=== PATIENT | male | born 1945 | race Caucasian/White ===

== ENCOUNTER 2017-06-10 16:50 | Observation (INO) | payer MEDICARE ==
[~2017-06-10] VITALS: Ht 177.8 cm; Wt 100.2 kg
[2017-06-10 16:54] VITALS: BP 166/91
[2017-06-10] MEDS ORDERED: CARVEDILOL12.5 MG PO (17:02)
[2017-06-10] MEDS ORDERED: VESICARE 5 MG TA5 MG PO (17:02)
[2017-06-10] MEDS ORDERED: ATORVASTATIN CA40 MG PO (17:02)
[2017-06-10] MEDS ORDERED: ASPIR 8181 MG PO (17:02)
[2017-06-10] MEDS ORDERED: AMARYL4 MG PO (17:02)
[2017-06-10] MEDS ORDERED: BENAZEPRIL HCL40 MG PO (17:02)
[2017-06-10] MEDS ORDERED: UNICOMPLEX M TA1 TA1 PO (17:03)
[2017-06-10] MEDS ORDERED: LITTLE REMEDIE118 M1 PO (17:03)
[2017-06-10] MEDS ORDERED: GLYXAMBI 25 MG1 EACH PO (17:03)
[2017-06-10] MEDS ORDERED: GLUCOPHAGE XR500 MG PO (17:03)
[2017-06-10] MEDS ORDERED: COQ-10100 MG PO (17:03)
[2017-06-10] MEDS ORDERED: PROBIOTIC1 EAC1 PO (17:03)
[2017-06-10] MEDS ORDERED: PROTONIX40 M1 PO (17:03)
[2017-06-10] MEDS ORDERED: NITROGLYCERIN0.4 MG SUBLING (17:04)
[2017-06-10 17:23] LABS: ABSOLUTE EOSINOPHILS 0.2 thou/uL (0.0-0.7); ABSOLUTE LYMPHOCYTES 1.6 thou/uL (0.8-5.3); ABSOLUTE MONOCYTES 0.8 thou/uL (0.0-1.2); ABSOLUTE NEUTROPHILS 4.9 thou/uL (1.6-8.1); BASOPHILS 0.6 %; EOSINOPHILS 2.3 %; HEMATOCRIT 46.7 % (42.0-52.0); HEMOGLOBIN 15.4 gm/dL (14.0-18.0); LYMPHOCYTES 20.9 %; MCH 31.6 pg (26.0-34.0); MCHC 32.9 g/dL (28.0-37.0); MCV 96.1 fL (80.0-100.0); MONOCYTES 10.3 %; MPV 11.1 fl. (7.2-11.1); NUCLEATED RBCS 0 /100WBC; PLATELET COUNT* 132 thou/uL (150-400); POLYS 65.9 %; RBC 4.86 mil/uL (4.50-6.00); RDW-CV 14.2 % (10.5-14.5); WBC 7.5 thou/uL (4.0-11.0)
[2017-06-10 17:29] LABS: ANION GAP 11 mmol/L (7-16); BUN 18 mg/dL (7-18); CALCIUM 8.2 mg/dL (8.5-10.1); CHLORIDE 111 mmol/L (98-107); CO2 24 mmol/L (21-32); CREATININE 1.4 mg/dL (0.6-1.3); GLUCOSE 80 mg/dL (70-99); POTASSIUM 4.1 mmol/L (3.5-5.1); SODIUM 146 mmol/L (136-145)
[2017-06-10 17:30] LABS: APTT 25.9 Seconds (25.0-31.3)
[2017-06-10 17:41] LABS: ALBUMIN 3.6 g/dL (3.4-5.0); ALKALINE PHOSPHATASE 70 U/L (46-116); LIPASE 210 U/L (73-393); NT-PRO BRAIN NAT PEPTIDE 807 pg/mL (<300); SGOT 19 U/L (15-37); SGPT 29 U/L (30-65); TOTAL BILIRUBIN 0.3 mg/dL (<0.1-1.0); TOTAL PROTEIN 6.4 g/dL (6.4-8.2); TROPONIN-I LEVEL <0.06 ng/mL (<0.06)
[2017-06-10 18:08] VITALS: BP 156/76
[2017-06-10 18:31] VITALS: BP 152/69
--- NOTE | 2017-06-10 19:22 | NUR ---
RECEIVED PT FROM ER. ADMISSION ASSESSMENT COMPLETE. PT C/O OF CHEST PRESSURE 06/01. CARDIOLOGY NOTIFIED, RECEIVED ORDER FOR NPO AFTER MIDNIGHT. VSS. AFEBRILE. MEDICATIONS UPDATED. PREFERRED PHARMACY ENTERED. PT EDUCATED RADIOLOGY SERVICES MANAGER LIGHT SYSTEM. PT ATE DINNER. PT ADDED TO BLOOD GLUCOSE MONITORING. PT AND SPOUSE EDUCATED ON PLAN. 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 PT REPORTS HE HAS DISCUSSED WHAT HE WANTS ADVANCE DIRECTIVE TO BE. PT TO HAVE CASE MANAGEMENT ADDRESS. TOOK HOME HOME NITRO. PT DENIES TAKING NITRO AT HOME.
[2017-06-10 20:30] VITALS: BP 138/67
[2017-06-11 01:05] VITALS: BP 126/76
[2017-06-11 03:18] LABS: HEMATOCRIT 43.9 % (42.0-52.0); HEMOGLOBIN 14.5 gm/dL (14.0-18.0); MCH 31.6 pg (26.0-34.0); MCV 95.7 fL (80.0-100.0); RBC 4.59 mil/uL (4.50-6.00); WBC 6.9 thou/uL (4.0-11.0)
[2017-06-11 03:33] LABS: ALBUMIN 3.3 g/dL (3.4-5.0); CALCIUM 8.1 mg/dL (8.5-10.1); CREATININE 1.5 mg/dL (0.6-1.3); MAGNESIUM 1.6 mg/dL (1.8-2.4); POTASSIUM 3.8 mmol/L (3.5-5.1); TOTAL BILIRUBIN 0.4 mg/dL (<0.1-1.0); TOTAL PROTEIN 5.8 g/dL (6.4-8.2)
[2017-06-11 04:47] VITALS: BP 145/79
--- NOTE | 2017-06-11 04:55 | NUR ---
PT A/OX4, RA, SR WITH PVC'S ON 0000 AND 0400 WITH 1999 SHOWING BIGEMONY, NO C/O CP OVER NIGHT, PT STATED HE HAS THE SLIGHT PRESSURE THAT HE'S HAD ALL WEEK AND EDUCATED PT TO REPORT ANY CHANGES, VSS, HOURLY ROUNDING IN PLACE, UP AD SILVERIO, FALL PRECAUTIONS IN PLACE, CALL LIGHT AT PTS SIDE, NPO FOR CARDIO CONSULT, WILL CONT TO MONITOR.
--- NOTE | 2017-06-11 06:33 | NUR ---
MAG 1.6 U-CALL SENT TO DR GARCIA, RETURN CALL WITH NEW ORDER FOR E-LYTE PROTOCOL REC.
[2017-06-11 07:09] LABS: CALCIUM 8.3 mg/dL (8.5-10.1); CREATININE 1.4 mg/dL (0.6-1.3); MAGNESIUM 1.6 mg/dL (1.8-2.4); POTASSIUM 3.9 mmol/L (3.5-5.1)
[2017-06-11 08:20] VITALS: BP 155/99
[2017-06-11 10:09] LABS: CHOLESTEROL 109 mg/dL (<200); HDL CHOLESTEROL 26 mg/dL (>40); LDL CHOLESTEROL 59 mg/dL (<100); SERUM ASSESSMENT Clear; TC:HDL 4.2 Ratio (Not establshd); TRIGLYCERIDE 121 mg/dL (<150); VLDL 24 mg/dL (<40)
--- NOTE | 2017-06-11 10:56 | EKG ---
[place] [address] ELECTROCARDIOGRAM REPORT Name: WARNER GOODE Room: [address] ADM IN .R.#: [id number] Admission: 06/10/17 Attend Phys: Ran Barajas, Discharge: Date of : 41 Report #: [id number] THIS REPORT FOR: //name// [facility] ED Test Date: 2017-06-10 Test Time: 16:55:14 Pat Name: WARNER GOODE Department: Room: [facility] Gender: M Supervisor Customer Complaint Service: Jonh MCKEE : 1945 Requested By: Morena Barney Order Number: [id number] MD: Wing Hernandez Measurements Intervals [place] Rate: 109 P: 68 IA: 170 QRS: 43 QRSD: 106 T: -43 QT: 380 QTc: 512 Interpretive Statements Sinus rhythm Ventricular bigeminy Borderline T abnormalities, inferior leads No previous ECG available for comparison Electronically Signed On 06-11-2017 10:56:05 DESKIDDING MACHINE OPERATOR by Wing Hernandez [email or web address] <ELECTRONICALLY SIGNED> By: Wing Hernandez MD, [facility] 06/11/17 1056 [id number] Wing Hernandez MD, [facility] /EPI
--- NOTE | 2017-06-11 12:03 | NUR ---
ATTEMPTED TO MEET WITH PT, OFF UNIT FOR TEST
[2017-06-11 12:33] VITALS: BP 156/65
--- NOTE | 2017-06-11 13:16 | NUR ---
MET WITH PT TO DISCUSS HOME SITUATION/DC PLANNING. PT LIVES WITH . HE IS INDEPENDENT AND ACTIVE. USES NO EQUIPMENT OR HOME CARE. PT PLANS TO RETURN HOME AT DC.
--- NOTE | 2017-06-11 14:43 | NUR ---
PT A/O X'S 4. PT NPO FOR STRESS TEST. DISCUSSED WITH PT PLAN OF CARE. PT C/O OF CONTINUED CHEST PRESSURE 2/10 ON CHEST. PT REPORTS IT IS SAME WHEN CAME IN HOSPITAL. PT UP AD SILVERIO. WILL CONTINUE PLAN OF CARE.
--- NOTE | 2017-06-11 16:03 | CARDNUC ---
[place] [address] CARDIAC NUCLEAR IMAGING REPORT Name: WARNER GOODE Room: [address] [facility]#: [id number] Admission: 06/10/17 Attend Phys: Ran Celestin Discharge: Date of : 41 Date of Service: 06/11/17 1603 Report #: [id number] THIS REPORT FOR: //name// APPROVED REPORT Exam: Nuclear Stress Test Indication: Chest pain Patient Location: In-Patient Room #: 226 Stress Tech: Hui Banerjee Stress Nurse: Monalisa Kay RN NM Tech:NUZHAT Deras Ht: 5 ft 10 in Wt: 221 lbs BSA: 2.18 m2 BMI: 31.70 Medical History Medical History: CAD s/p PA, HTN, Hyperlipidemia, Diabetes Medications: atorvastatin, carvedilol, lisinopril, asa Allergies: nexium Cardiac Risk Factors: Age, DM, HTN, Hyperlipidemia Previous Cardiac Procedures: Myocardial infarction Exercise History: Sedentary Stress Test Details Stress Test: Pharmacologic stress testing performed using 0.4 mg of regadenoson per 5 mL given IV over 10 seconds. Reason for pharmacologic stress test: physical limitation. HR Resting HR: 80 bpm Max Heart Rate (APMHR): 147 bpm Max HR Achieved: 95 bpm Target HR (85% APMHR): 124 bpm % of APMHR: 64 Recovery HR: 90 bpm BP Resting BP: 130/99 mmHg Max BP: 113/70 mmHg ECG Resting ECG: sinus rhythm with PVCs Stress ECG: sinus rhythm with PVCs ST Change: None Arrhythmia: no significant [place] [address] CARDIAC NUCLEAR IMAGING REPORT Name: WARNER GOODE Room: [address]#: [id number] Admission: 06/10/17 Attend Phys: Ran Celestin Discharge: Date of : 41 Date of Service: 06/11/17 1603 Report #: [id number] noted Recovery ECG: sinus rhythm with PVCs Recovery ST Change: None Recovery Arrhythmia: no significant stress-induced arrhythmia noted Clinical Reason for Termination: Completed protocol Stress Symptoms: None Exercise duration: - min sec Exercise capacity: 1.0 METs The patient had no significant symptoms with Lexiscan infusion. Stress ECG Conclusion Baseline 12-lead elect cardiogram showed sinus rhythm with unifocal premature ventricular contractions. There was subtle 0.[address] segment depression noted. EKGs obtained during and post Lexiscan infusion showed sinus rhythm with continued frequent unifocal premature ventricular contractions. There were no significant ST or T wave changes noted when compared to baseline. There were no significant stress-induced arrhythmias. NM EXAM: Myocardial Perfusion REST/STRESS Imaging Protocol: Rest Tc-99m/Stress Tc-99m 1 day Resting Data Rest SPECT myocardial perfusion imaging was performed in supine position 30 minutes following the intravenous injection of 12.0 mCi of Tc-99m Sestamibi. Time of rest injection: 1000 Time of rest imagin The images were gated to evaluate regional wall motion and calculate left ventricular ejection fraction. Administration Route: IV Pharmacologic Stress Pharmacologic stress test was performed by injecting Regadenoson 0.4 mg IV push followed by the intravenous injection of 30.0 mCi of Tc-99m Sestamibi. Time of stress injection: 1125 Time of stress imagin Administration Route: IV Gated Stress SPECT was performed 120 minutes after stress injection. The images were gated to evaluate regional [place] [address] CARDIAC NUCLEAR IMAGING REPORT Name: WARNER GOODE Room: [address]#: [id number] Admission: 06/10/17 Attend Phys: Ran Celestin Discharge: Date of : 41 Date of Service: 06/11/17 1603 Report #: [id number] left ventricular ejection fraction. Prone imaging was performed. Study Quality Study: Good Artifact: No artifact Study Data At rest, the left ventricular ejection fraction was 35%.. Post stress, the left ventricular ejection was 34%.. TID = 1.01. Perfusion There is a moderate size severe intensity fixed defect involving the basal to midportion of the inferior and inferoseptal wall. No other defects are identified. Wall Motion Gated images show severe hypokinesis to akinesis of the inferolateral inferoseptal wall. No other significant wall motion abnormalities noted. Nuclear Conclusion ECG Findings: negative for ischemia Clinical Findings: negative for ischemia Nuclear Findings: negative for ischemia Exercise Capacity: not assessed Left Ventricular Function: abnormal Risk Study: moderate Myocardial perfusion images show a fixed defect of the inferior and inferoseptal wall consistent with prior infarct. No reversible defects are identified to suggest ischemia. Left ventricular systolic function appears moderately decreased consistent with ischemic cardiomyopathy. His is a moderate risk study based on left ventricular systolic dysfunction. <Conclusion> Baseline 12-lead elect cardiogram showed sinus rhythm with unifocal premature ventricular contractions. There was subtle 0.[address] segment depression noted. EKGs obtained during and post Lexiscan infusion showed sinus rhythm with continued frequent unifocal premature ventricular contractions. There were no significant ST [place] [address] CARDIAC NUCLEAR IMAGING REPORT Name: WARNER GOODE Room: [address] [place] [facility]#: [id number] Admission: 06/10/17 Attend Phys: Ran Celestin Discharge: Date of : 41 Date of Service: 06/11/17 1603 Report #: [id number] wave changes noted when compared to baseline. There were no significant stress-induced arrhythmias. <ELECTRONICALLY SIGNED> By: Erick Carias MD, FACC 06/11/17 1603 1603 1603 Erick Carias MD, FACC /INF
[2017-06-11 16:15] VITALS: BP 156/65
[2017-06-11 16:17] VITALS: BP 142/79
--- NOTE | 2017-06-11 16:39 | 2DMMODE ---
[place] [address] 2 D/M-MODE ECHOCARDIOGRAM Name: WARNER GOODE Room: [address] IN [facility]#: [id number] Admission: 06/10/17 Attend Phys: Ran Celestin Discharge: Date of : 41 Date of Service: 06/11/17 1638 Report #: [id number] THIS REPORT FOR: //name// ADDENDUM APPROVED REPORT Study performed: 06/11/2017 11:40:02 EXAM: Comprehensive 2D, Doppler, and color-flow Echocardiogram Patient Location: In-Patient Room #: [facility] BSA: 2.17 HR: 76 bpm BP: 123/83 mmHg Other Information Study Quality: Good Indications Angina 2D Dimensions LVEF(%): 57.29 (>50%) IVSd: 14.58 (7-11mm) LVOT Diam: 20.80 (18-24mm) LVDd: 59.18 mm PWd: 13.57 (7-11mm) Ascending Ao: 34.43 (22-36mm) LVDs: 41.06 (25-40mm) Aortic Root: 35.10 mm Osborne's LVEF: 57.29 % Volumes Left Atrial Volume (Systole) LA ESV Index: 26.00 mL/m2 Aortic Valve AoV Peak Jostin.: 1.57 m/s AO Peak Gr.: 9.87 mmHg LVOT Max P.09 mmHg AO Mean Gr.: 4.62 mmHg LVOT Mean P.60 mmHg LVOT Max V: 1.01 m/s AO V2 VTI: 26.29 cm LVOT Mean V: 0.56 m/s GABRIELE (VTI): 3.03 cm2 LVOT V1 VTI: 23.41 cm Mitral Valve E/A Ratio: 0.62 MV Decel. Time: 192.69 [place] [address] 2 D/M-MODE ECHOCARDIOGRAM Name: WARNER GOODE Room: [address] IN .R.#: [id number] Admission: 06/10/17 Attend Phys: Ran Celestin Discharge: Date of : 41 Date of Service: 06/11/17 1638 Report #: [id number] MV E Max Jostin.: 0.60 m/s MV PHT: 55.88 ms MVA (PHT): 3.94 cm2 TDI E/Lateral E': 6.67 E/Medial E': 8.57 Medial E' Jostin.: 0.07 m/s Lateral E' Jostin.: 0.09 m/s Pulmonary Valve PV Peak Jostin.: 0.99 m/s PV Peak Gr.: 3.92 mmHg Tricuspid Valve TR Peak Gr.: 35.67 mmHg RVSP: 40.67 mmHg Left Ventricle The left ventricle is normal size. the basal inferior wall is akinetic. Mild concentric left ventricular hypertrophy. Left ventricular systolic function is mildly decreased. LVEF is 40-45%. Grade I - abnormal relaxation pattern. Right Ventricle The right ventricle is normal size. The right ventricular systolic function is normal. Atria The left atrium size is normal. The right atrium size is normal. Aortic Valve The aortic valve is normal in structure. No aortic regurgitation is present. There is no aortic valvular stenosis. Mitral Valve The mitral valve is normal in structure. Mild mitral regurgitation. No evidence of mitral valve stenosis. Tricuspid Valve The tricuspid valve is normal in structure. Mild tricuspid regurgitation. The RVSP is __40.7 mmHg. Pulmonic Valve The pulmonary valve is normal in structure. There is no pulmonic valvular regurgitation[place] [address] 2 D/M-MODE ECHOCARDIOGRAM Name: WARNER GOODE Room: [address] IN [facility]#: [id number] Admission: 06/10/17 Attend Phys: Ran Celestin Discharge: Date of : 41 Date of Service: 06/11/17 1638 Report #: [id number] The aortic root is normal in size. IVC is normal in size and collapses with >50% inspiration Pericardium There is no pericardial effusion. <Conclusion> The left ventricle is normal size. Mild concentric left ventricular hypertrophy. Left ventricular systolic function is mildly decreased. LVEF is 40-45%. Grade I - abnormal relaxation pattern. the basal inferior wall is akinetic. Mild mitral regurgitation. Mild tricuspid regurgitation. The RVSP is __40.7 mmHg. IVC is normal in size and collapses with >50% inspiration <ELECTRONICALLY SIGNED> By: Erick Carias MD, FACC 06/11/17 1638 1638 1638 Erick Carias MD, FACC /INF
--- NOTE | 2017-06-11 16:49 | CON ---
[address] [address] CONSULTATION Name: WARNER GOODE Room: [address] IN .R.#: [id number] Admission: 06/10/17 Attend Phys: Ran Barajas, Discharge: Date of : 41 Report #: [id number] THIS REPORT FOR: //name// CC: Reese Barajas INDICATION: Chest pain. HISTORY OF PRESENT ILLNESS: The patient is a very pleasant 71-year-old gentleman who has had prolonged chest discomfort radiating across his chest, but not into his arm or neck for several hours. He has some mild chest pressure with this. The chest pain is minimally reproducible with palpation. The pain is not worse with deep breath. There is no associated nausea, vomiting or diaphoresis. The patient has a history of inferior wall myocardial infarction in 1998. Subsequent stress testing showed ischemic cardiomyopathy with a fixed inferior wall defect and an ejection fraction of 36%. He has chronic systolic heart failure without apparent acute exacerbation. He has minimal dyspnea on exertion, but no orthopnea or paroxysmal nocturnal dyspnea. He has frequent unifocal premature ventricular contractions on telemetry monitoring without significant palpitations. CARDIAC RISK FACTORS: Include hypertension, dyslipidemia and type 2 diabetes mellitus. ALLERGIES: NEXIUM. CURRENT MEDICATIONS: Aspirin 81 mg daily, atorvastatin 40 mg at bedtime, benazepril 40 mg at bedtime, carvedilol 12.5 mg b.i.d. Glyxambi 25/5 one tablet daily, glimepiride 4 mg daily, probiotic one capsule daily, metformin XR 500 mg b.i.d. Unicomplex-M tablet 1 daily, Nitrostat p.r.n., Protonix 40 mg b.i.d., VESIcare 5 mg at bedtime, CoQ10 100 mg daily. PAST MEDICAL HISTORY: 1. Coronary artery disease. 2. Hyperlipidemia. 3. Type 2 diabetes mellitus. 4. Ischemic cardiomyopathy. PAST SURGICAL HISTORY: 1. Laminectomy. 2. Tonsillectomy. 3[place] [address] CONSULTATION Name: WARNER GOODE Room: [address]#: [id number] Admission: 06/10/17 Attend Phys: Ran Barajas, Discharge: Date of : 41 Report #: [id number] FAMILY HISTORY: The patient's son had myocardial infarction at age 44. SOCIAL HISTORY: The patient is , is a retired high school librarian. He does not smoke. He does not drink alcohol. REVIEW OF SYSTEMS: A 14-point review of systems is positive for erectile dysfunction, chest discomfort, dyspnea on exertion, history of heart murmur, type 2 diabetes mellitus. He wears glasses without acute visual change, decreased hearing. Otherwise, 14-point review of systems was unremarkable. PHYSICAL EXAMINATION: VITAL SIGNS: Stable. Blood pressure was 132/72, pulse is in the 70s and regular. GENERAL: This is a pleasant gentleman who is in no distress. Mood and affect appropriate. HEENT: Extraocular muscles intact. Mucous membranes are moist. NECK: Shows no jugular venous distention. There are no bruits. CHEST: Reveals clear lung artis without wheezes, rales or rhonchi. CARDIOVASCULAR: Reveals a regular rhythm. I do not appreciate gallop or murmur. ABDOMEN: Reveals normal bowel sounds. The abdomen is soft, nontender. EXTREMITIES: Show no edema. Peripheral pulses are 2+ and easily palpable. SKIN: Warm and dry. LABORATORY DATA: A 12-lead EKG shows sinus rhythm with PVCs in a pattern of bigeminy. I do not appreciate acute ST or T-wave abnormality. Labs are reviewed. Troponins are unremarkable. Chest x-ray shows no acute cardiopulmonary abnormality. IMPRESSION AND RECOMMENDATIONS: 1. Prolonged chest discomfort. We will obtain myocardial perfusion imaging stress testing to further evaluate for any underlying ischemia. Further treatment and/or intervention will be pending the results of that study. 2. Coronary artery disease. Continue daily aspirin. 3. Ischemic cardiomyopathy. Continue carvedilol and benazepril at current doses. The patient appears well compensated. 4. Type 2 diabetes mellitus per primary physician. 5. Hyperlipidemia. Continue atorvastatin. Repeat fasting lipid profile. <ELECTRONICALLY SIGNED> By: Erick Carias MD, FACC 06/11/17 1649 0952 [id number] Carias MD, FACC /nt
--- NOTE | 2017-06-11 17:21 | NUR ---
CARDIOLOGY OKAY WITH DISCHARGE. PT WANTING TO DISCHARGE. RECEIVED DISCHARGE ORDERS. PT TO F/U WITH CARDIOLOGY IN FINANCIAL REPORTING ADVISOR 06/14. CARDIOLOGY TO CALL PT 06/12 WITH TIME AND INSTRUCTIONS
[2017-06-14] MEDS ORDERED: ALDACTONE25 MG PO (16:01)
== END 2017-06-11 18:19 | disposition home or self-care (01) ==
LOC: M.ERS 16:50 → M.2W 17:51 → M.TBA-ER 17:51 → M.2W 17:51
PROVIDERS: Internal Medicine Cardiovascular Disease; Personal Emergency Response Attendant; ADMIT Family Medicine
DX: I25.119 Atherosclerotic heart disease of native coronary artery with unspecified angina pectoris (principal); I25.5 Ischemic cardiomyopathy; E11.9 Type 2 diabetes mellitus without complications; E78.5 Hyperlipidemia, unspecified; K21.9 Gastro-esophageal reflux disease without esophagitis; I10 Essential (primary) hypertension; I25.2 Old myocardial infarction; N40.0 Benign prostatic hyperplasia without lower urinary tract symptoms; Z87.891 Personal history of nicotine dependence; Z82.49 Family history of ischemic heart disease and other diseases of the circulatory system

== ENCOUNTER → 2017-06-14 | Outpatient (CLI) | payer MEDICARE ==
[~2017-06-14] VITALS: Ht 177.8 cm; Wt 99.8 kg
[~2017-06-14] MED LIST: ALDACTONE25 MG PO; AMARYL4 MG PO; ASPIR 8181 MG PO; ATORVASTATIN CA40 MG PO; BENAZEPRIL HCL40 MG PO; CARVEDILOL12.5 MG PO; COQ-10100 MG PO; GLUCOPHAGE XR500 MG PO; GLYXAMBI 25 MG1 EACH PO; LITTLE REMEDIE118 M1 PO; NITROGLYCERIN0.4 MG SUBLING; PROBIOTIC1 EAC1 PO; PROTONIX40 M1 PO; UNICOMPLEX M TA1 TA1 PO; VESICARE 5 MG TA5 MG PO
[2017-06-14 11:47] VITALS: BP 136/83
[2017-06-14 14:46] VITALS: BP 129/79
[2017-06-14 15:01] VITALS: BP 137/84
--- NOTE | 2017-06-14 15:42 | EKG ---
[place] [address] ELECTROCARDIOGRAM REPORT Name: WARNER GOODE Abdirizak Room: [facility]#: [id number] Admission: 06/14/17 Attend Phys: Wing Hernandez MD, F Discharge: Date of : 41 Report #: [id number] THIS REPORT FOR: //name// [facility] Test Date: 2017-06-14 Test Time: 11:48:53 Pat Name: WARNER GOODE Department: Room: Gender: M Metal Off Bearer: 25 : 1945 Requested By: Wing Hernandez Order Number: [id number] Reading MD: Wing Hernandez Measurements Intervals [place] Rate: 80 P: 69 AK: 166 QRS: 48 QRSD: 109 T: -50 QT: 388 QTc: 448 Interpretive Statements Sinus rhythm Multiform ventricular premature complexes Consider left atrial enlargement Borderline T abnormalities, diffuse leads Compared to ECG 06/10/2017 16:55:14 No significant changes Electronically Signed On 06-14-2017 15:42:03 TRAY WORKER by Wing Hernandez [email or web address] <ELECTRONICALLY SIGNED> By: Wing Hernandez MD, [facility] 06/14/17 1542 1148 1148 Wing Hernandez MD, [facility] /EPI
--- NOTE | 2017-06-14 15:51 | CARD ---
[address] [address] CARDIAC CATH REPORT Name: WARNER GOODE Room: [facility]#: [id number] Admission: 06/14/17 Attend Phys: Wing Hernandez MD, F Discharge: Date of : 41 Report #: [id number] THIS REPORT FOR: //name// APPROVED REPORT Patient Details Patient Status: Out-Patient Room #: The patient is a 71 year-old male Event Personnel Wing Hernandez Surgery Specialist, Marla Hurley RN Monitor, Sanchez Maza Evinger, Makenzie RN process improvement engineer Performed cathArt Access - R radial artery , Right transradial approachLeft Heart Cath w/or w/o Coronaries [id number] [facility] , Left Heart CatheterizationHemostasis with Hemoband Indication Positive stress test, Chest pain Risk Factors Arterial Hypertension, Hypercholesterolemia, Coronary Artery Disease, Diabetes Previous Procedures/Diagnoses Previous TX Admission/Lab Medications/Medications given during procedure Heparin Unfract. Procedure Narrative The patient was brought electively to the Cardiac Catheterization Laboratory and was prepped and draped in a sterile manner. The right wrist was infiltrated with 1% Lidocaine subcutaneous anesthesia. A 6 fr sheath was inserted into the right radial artery. Coronary angiography was performed using coronary diagnostic catheters. The right coronary system was accessed and visualized with a Diagnostic catheter. The left coronary system was accessed and visualized with a Diagnostic catheter. The left ventricle was accessed and visualized with a Diagnostic catheter. Left ventricular/Aortic Valve gradient assessed via catheter pullback. Left ventriculogram was performed in ORTEGA projection. Closure device was deployed with a 6 Fr vascband. The patient tolerated the procedure well and there were no complications associated with the procedure. [place] [address] CARDIAC CATH REPORT Name: WARNER GOODE Room: [facility]#: [id number] Admission: 06/14/17 Attend Phys: Wing Hernandez MD, F Discharge: Date of : 41 Report #: [id number] Intraoperative Conscious Sedation Sedation start time: 14:01 Case end Time: 14:30 Fentanyl 25.0 mcg Fluoro Time: 5.5 minutes Dose: 1010.66 mGy Contrast Type and Amount: Visipaque 120 ml Coronary Angiography The patient's coronary anatomy is right dominant. [place] Artery Percent Stenosis Left Main: 0 % Prox LAD: 0 % Mid/Distal LAD: 0 % Circumflex: 0 % RCA: 100 % Ramus: % Diagnostic Cath Left Main 0% stenosis LAD 0% stenosis Diagonal 1 60% ostial stenosis Circumflex 0% stenosis Right Coronary 100% chronically occluded proximally and filled distally by bridging collaterals as well as collaterals from the circumflex and lad Left Ventriculography The left ventricular ejection fraction is estimated to be 25-30%. Left ventricular wall motion abnormalities are present. There is 1+ mitral insufficiency. akinesis noted of inferior wall Hemodynamics The aortic pressure is 135/80 mmHg with a mean of 101 mmHg. The left ventricular pressure is 140/7 mmHg with a mean of mmHg. The left ventricular end diastolic pressure is 16 mmHg. There was no gradient across the aortic valve upon pullback. Pullback from the left ventricle to the aorta revealed no gradient across the aortic valve. Conclusion 1. chronic [place] [address] CARDIAC CATH REPORT Name: RUPAWARNER Reveles Room: [facility]#: [id number] Admission: 06/14/17 Attend Phys: Wing Hernandez MD, F Discharge: Date of : 41 Report #: [id number] Recommendations consider ICD <ELECTRONICALLY SIGNED> By: Wing Hernandez MD, FAC 06/14/17 1551 1551 1551Dlinn Hernandez MD, FACC /INF
--- NOTE | 2017-06-14 18:15 | D ---
[address] [address] DISCHARGE SUMMARY Name: RUPAWARNER Abdirizak Room: [facility]#: [id number] Admission: 06/14/17 Attend Phys: Wing Hernandez MD, F Discharge: Date of : 41 Report #: [id number] THIS REPORT FOR: //name// CC: Reese Roth DATE OF SERVICE: 06/14/2017 DISCHARGE DIAGNOSES: 1. Coronary artery disease. 2. Ischemic cardiomyopathy. 3. Diabetes. 4. Hypertension. 5. Hyperlipidemia. 6. Chronic kidney disease. CONSULTANTS: None. PROCEDURES: Left heart catheterization from the right radial artery. HISTORY OF PRESENT ILLNESS: The patient is a 71-year-old white male who was brought to the outpatient department to undergo cardiac catheterization. The patient apparently was told that he had an inferior wall myocardial infarction back in 1998. Stress testing showed no significant ischemia and medical therapy was recommended. He has never had a heart catheterization. He has done well since that time with no significant shortness of breath, palpitations, or syncope. He has been following me in the cardiology clinic on a regular basis. He presented to [place] 3 days ago complaining of intermittent pain in his chest. It is not related to exertion or meals. He was actually seen by my partner, Dr. Carias. The pain is felt to be atypical for angina. He underwent a nuclear stress test that showed evidence of an inferior scar with an ejection fraction of only 34%. His chest pain is felt to be noncardiac. Because of his cardiomyopathy; however, consideration of a defibrillator was discussed with the patient. The patient was discharged and returned at this time for cardiac catheterization prior to consideration of defibrillator. PAST MEDICAL HISTORY: Otherwise significant for back surgery, tonsillectomy, hypertension, diabetes, and hyperlipidemia. MEDICATIONS: Consist of aspirin, Lipitor, Lotensin, carvedilol, glimepiride, metformin, and Protonix. ALLERGIES: He had a previous [place] [address] DISCHARGE SUMMARY Name: WARNER GOODE Room: [facility]#: [id number] Admission: 06/14/17 Attend Phys: Wing Hernandez MD, F Discharge: Date of : 41 Report #: [id number] PHYSICAL EXAMINATION: VITAL SIGNS: Blood pressure 130/70, pulse 70. CHEST: Clear to auscultation. HEART: Regular rate and rhythm. ABDOMEN: Soft, nontender. EXTREMITIES: Had no edema. SKIN: Warm and dry. RECENT LAB WORK: Sodium is 146, BUN 18, creatinine 1.4. Liver function studies were normal. Cholesterol 109, triglyceride 121, HDL 26, LDL 59. White blood cell count 6.9, hemoglobin 14.5. He had a recent chest x-ray that showed normal heart size and clear lung artis. Carotid Doppler study done last November showed calcified plaque, but no significant stenosis. HOSPITAL COURSE: The patient was brought to the outpatient department. I performed a left heart catheterization from the right radial artery. ejection fraction of only 30% with inferior wall akinesia. He had a 60% narrowing of the small diagonal branch of the LAD. The right coronary artery was chronically occluded, filled by collaterals. The results were discussed with the patient, it was felt he had evidence of an ischemic cardiomyopathy. He tolerated the procedure well and was discharged from the outpatient department. I suspect his chest pain is noncardiac. His prognosis is guarded due to his cardiomyopathy. He was discharged to continue his home medications include aspirin 81 mg a day, Lipitor 40 mg a day, Lotensin 40 mg a day, carvedilol 12.5 mg twice a day, Amaryl 4 mg a day for his diabetes, he was not to resume metformin for 48 hours, he was continued on Protonix 40 mg a day. Because his cardiomyopathy, I recommend starting Aldactone 25 mg a day. I recommend no heavy lifting with the right wrist for the next 3 days. He was then to resume his normal activity. Because of his cardiomyopathy, I would recommend a defibrillator. The patient is going to return to see Dr. Carias for placement of an ICD electively. He was to contact my office if he had any fever, bleeding, increased shortness of breath. <ELECTRONICALLY SIGNED> By: Wing Hernandez MD, FACC 06/14/17 1815 1520 1627Damarshall Hernandez MD, FAC /nt
== END | disposition home or self-care (01) ==
LOC: M.CL 10:35
DX: I25.82 Chronic total occlusion of coronary artery (principal); I13.0 Hypertensive heart and chronic kidney disease with heart failure and stage 1 through stage 4 chronic kidney disease, or unspecified chronic kidney disease; I25.5 Ischemic cardiomyopathy; K21.9 Gastro-esophageal reflux disease without esophagitis; I25.2 Old myocardial infarction; E11.22 Type 2 diabetes mellitus with diabetic chronic kidney disease; N18.9 Chronic kidney disease, unspecified; E78.00 Pure hypercholesterolemia, unspecified; Z98.890 Other specified postprocedural states; Z87.442 Personal history of urinary calculi; Z79.899 Other long term (current) drug therapy; Z79.82 Long term (current) use of aspirin; Z88.8 Allergy status to other drugs, medicaments and biological substances

== ENCOUNTER → 2017-06-25 | Outpatient (CLI) | payer MEDICARE ==
[~2017-06-25] VITALS: Ht 177.8 cm; Wt 98.4 kg
[2017-06-25 13:21] LABS: HEMATOCRIT 46.8 % (42.0-52.0); HEMOGLOBIN 15.3 gm/dL (14.0-18.0); MCH 31.2 pg (26.0-34.0); MCHC 32.7 g/dL (28.0-37.0); MCV 95.5 fL (80.0-100.0); RBC 4.9 mil/uL (4.50-6.00); RDW-CV 13.9 % (10.5-14.5); WBC 9.2 thou/uL (4.0-11.0)
[2017-06-25 13:23] VITALS: BP 135/95
[2017-06-25 13:24] LABS: CALCIUM 8.9 mg/dL (8.5-10.1); CREATININE 1.5 mg/dL (0.6-1.3); POTASSIUM 4.4 mmol/L (3.5-5.1)
[2017-06-25 13:25] LABS: APTT 19.9 Seconds (25.0-31.3)
[2017-06-25 13:28] LABS: ALBUMIN 3.9 g/dL (3.4-5.0); TOTAL BILIRUBIN 0.5 mg/dL (<0.1-1.0); TOTAL PROTEIN 6.8 g/dL (6.4-8.2)
[2017-06-25 15:33] VITALS: BP 153/90
[2017-06-25 16:04] VITALS: BP 163/91
[2017-06-25 16:11] VITALS: BP 159/93
[2017-06-25 16:17] VITALS: BP 158/92
[2017-06-25 16:31] VITALS: BP 168/91
--- NOTE | 2017-06-25 16:38 | EKG ---
[place] [address] ELECTROCARDIOGRAM REPORT Name: WARNER GOODE Room: [facility]#: [id number] Admission: 06/25/17 Attend Phys: Erick Carias MD Discharge: Date of : 41 Report #: [id number] THIS REPORT FOR: //name// [facility] Test Date: 2017-06-25 Test Time: 13:50:02 Pat Name: WARNER GOODE Department: Room: Gender: M Assistant Loan Processor: : 1945 Requested By: Erick Carias Order Number: [id number] Reading MD: Erick Carias Measurements Intervals Lavina Rate: 79 P: 62 WI: 176 QRS: 41 QRSD: 111 T: -22 QT: 388 QTc: 445 Interpretive Statements Sinus rhythm Ventricular premature complex Borderline T abnormalities, inferior leads Compared to ECG 06/14/2017 11:48:53 No significant changes Electronically Signed On 06-25-2017 16:38:20 [facility] by Erick Carias [email or web address] <ELECTRONICALLY SIGNED> By: Erick Carias MD, [facility] 06/25/17 1638 1350 1350 Erick Carias MD, FACC /EPI
--- NOTE | 2017-07-16 15:52 | CARD ---
[address] [address] CARDIAC CATH REPORT Name: RUPAWARNER Reveles Room: [facility]#: [id number] Admission: 06/25/17 Attend Phys: Erick Carias MD Discharge: Date of : 41 Report #: [id number] THIS REPORT FOR: //name// APPROVED REPORT Study performed: 06/25/2017 13:01:38 Patient Status: Out-Patient Room #: Event Personnel: Erick Carias Rubber Flap Cutter, Margret Orr RN RN, Rae Mckoy RTR Monitor, Duglas Gomez (R) Scrub Exam: insertion of a dual-chamber ICD Indications: ischemic cardiomyopathy The patient is a 71 year-old male with a history of . Patient Info Last EF%: 35 Date: NYHA Heart Class: II Intraoperative Conscious Sedation Sedation start time: 1423 Case end Time: 1505 Fentanyl 100 mcg Versed 4 mg Implanted Devices: Biotronik Iperia 7 DR-T DF 4 ProMRI, model #484728, serial #[id number]. Biotronik Solia S 53 model #221357, serial #[id number]. Biotronik Plexa ProMRI SD 6518 model #437206, serial #[id number]. Procedure After explaining the risks, benefits, and alternative options, informed consent was obtained from the patient. The patient was brought to the cardiac catheterization lab and the left chest and shoulder were prepped and draped in the usual fashion. During this case, Fluoroscopy and visipaque 10cc were used for imaging. After an initial incision was made a device pocket was formed over the left pectoralis muscle using electrocautery and blunt dissection. The left subclavian vein was accessed using the percutaneous technique after a peripheral injection of contrast. A safety J guidewire was ultimately advanced to the right atrium under fluoroscopic guidance and externally fixed [place] [address] CARDIAC CATH REPORT Name: WARNER GOODE Room: [facility]#: [id number] Admission: 06/25/17 Attend Phys: Erick Carias MD Discharge: Date of : 41 Report #: [id number] Utilizing the micropuncture kit a second time the left subclavian vein was then again accessed percutaneously. A second safety J guidewire ultimately was advanced to the right atrium under fluoroscopic guidance. A tear-away introducer was advanced over the free guidewire. The dilator and guidewire were removed as the RV pacing defibrillator lead was advanced to a secure position within the right ventricle under fluoroscopic guidance. The tear-away introducer was removed. The lead was actively fixed. Thresholds and sensing were checked and deemed to be satisfactory. Next utilizing the remaining guidewire a second tear-away introducer was advanced and the dilator and guidewire were removed. An atrial lead was advanced to a secure position within the right atrial appendage. The tear-away introducer was removed. The lead was actively fixed. Thresholds and sensing were checked and deemed to be satisfactory. The atrial and ventricular leads were then secured within the device pocket using the designated cuffs and 0 silk suture. The pocket was then flushed with antibiotic solution. A dual-chamber pacing defibrillator generator was attached to the atrial and ventricular/defibrillatorleads. The redundant lead and device were placed within the pocket. The deep tissues were closed with interrupted stitches of 2-0 Vicryl suture. The skin incision was then closed with a single subcuticular stitch of 4-0 Vicryl. Several Steri-Strips were placed across the incision. A sterile Telfa dressing was then covered with a Tegaderm. The sensed P-wave was 1.90 mV. The sensed R-wave was 9.8 mV. The atrial lead pacing threshold was 0.7 V at 0.40 ms. The RV pacing threshold was 0.7 V at 0.40 ms. Atrial pacing impedance was stable at 548 ohms. RV pacing impedance was stable at 620 ohms. Shock impedance was stable at 65 ohms. Charge time was 9.6 seconds. VF detection rate: 250 bpm. VT 1 detection rate: 167 bpm. VT 2 detection rate: 182 bpm. VF therapies: Anti-tach pacing times one followed by 40 J shocks times a day. VT 1 therapies: Monitor. VT 2 therapies: Versed pacing 3 followed by rapid pacing 3 followed by 40 J shock times a day. Complications The patient tolerated the procedure well and there were no complications associated with the procedure. Findings [address] [address] CARDIAC CATH REPORT Name: WARNER GOODE [id number] Admission: 06/25/17 Attend Phys: Erick Carias MD Discharge: Date of : 41 Report #: [id number] Specimens Removed: N/A Estimated Blood Loss: 0 Conclusion 1. Ischemic cardiomyopathy with EF less than 35%. 2. Successful placement of a dual-chamber pacing defibrillator for primary prevention. Recommendations 1. Follow-up site check in one week. <ELECTRONICALLY SIGNED> By: Erick Carias MD, FACC 07/16/17 1552 1552 1552Micfermin Carias MD, FACC /INF
== END ==
LOC: M.CL 10:00
PROVIDERS: Internal Medicine Cardiovascular Disease
DX: I25.5 Ischemic cardiomyopathy (principal); R07.9 Chest pain, unspecified; K21.9 Gastro-esophageal reflux disease without esophagitis; E11.9 Type 2 diabetes mellitus without complications; I21.3 ST elevation (STEMI) myocardial infarction of unspecified site; Z98.890 Other specified postprocedural states; E78.00 Pure hypercholesterolemia, unspecified

== ENCOUNTER → 2018-01-14 | Outpatient (CLI) | payer MEDICARE | LOC: M.CT | DX: N28.1 Cyst of kidney, acquired (principal); N20.0 Calculus of kidney; K76.0 Fatty (change of) liver, not elsewhere classified; K57.92 Diverticulitis of intestine, part unspecified, without perforation or abscess without bleeding; Z72.89 Other problems related to lifestyle ==

== ENCOUNTER → 2018-02-21 | Outpatient (CLI) | payer MEDICARE | LOC: M.ULTRA 13:02 | DX: N28.89 Other specified disorders of kidney and ureter (principal); N28.1 Cyst of kidney, acquired; N20.0 Calculus of kidney ==

== ENCOUNTER → 2018-07-29 | Outpatient (CLI) | payer MEDICARE ==
--- NOTE | 2018-07-29 11:00 | 2DMMODE ---
[place] [address] 2 D/M-MODE ECHOCARDIOGRAM Name: WARNER GOODE Room: [facility]#: [id number] Admission: 07/29/18 Attend Phys: Carmen Michel, Discharge: Date of : 41 Date of Service: 07/29/18 [facility] Report #: [id number] THIS REPORT FOR: //name// APPROVED REPORT Study performed: 07/29/2018 08:50:37 EXAM: Comprehensive 2D, Doppler, and color-flow Echocardiogram Patient Location: Out-Patient BSA: 2.19 HR: 88 bpm BP: 123/83 mmHg Other Information Study Quality: Good Indications CAD Cardiomyopathy 2D Dimensions IVSd: 13.44 (7-11mm) LVOT Diam: 20.65 (18-24mm) LVDd: 57.54 mm PWd: 13.75 (7-11mm) Ascending Ao: 33.02 (22-36mm) LVDs: 38.63 (25-40mm) Aortic Root: 29.03 mm Volumes Left Atrial Volume (Systole) LA ESV Index: 18.00 mL/m2 Aortic Valve AoV Peak Jostin.: 1.28 m/s AO Peak Gr.: 6.59 mmHg LVOT Max P.94 mmHg AO Mean Gr.: 3.22 mmHg LVOT Mean P.77 mmHg LVOT Max V: 0.86 m/s AO V2 VTI: 23.15 cm LVOT Mean V: 0.63 m/s GABRIELE (VTI): 3.26 cm2 LVOT V1 VTI: 22.53 cm Mitral Valve E/A Ratio: 0.51 MV Decel. Time: 242.42 ms MV E Max Jostin.: 0.52 m/s MV PHT: 70.30 [place] [address] 2 D/M-MODE ECHOCARDIOGRAM Name: WARNER GOODE Room: [facility]#: [id number] Admission: 07/29/18 Attend Phys: Carmen Michel, Discharge: Date of : 41 Date of Service: 07/29/18 [facility] Report #: [id number] MVA (PHT): 3.13 cm2 TDI E/Lateral E': 6.50 E/Medial E': 8.67 Medial E' Jostin.: 0.06 m/s Lateral E' Jostin.: 0.08 m/s Pulmonary Valve PV Peak Jostin.: 0.90 m/s PV Peak Gr.: 3.25 mmHg Tricuspid Valve RAP Estimate: 5.00 mmHg TR Peak Gr.: 17.37 mmHg RVSP: 22.37 mmHg PA Pressure: 22.37 mmHg Left Ventricle The left ventricle is normal size. Basal inferior wall akinesis. Mild concentric left ventricular hypertrophy. Left ventricular systolic function is mildly decreased. LVEF is 45-50%. Grade I - abnormal relaxation pattern. Right Ventricle The right ventricle is normal size. The right ventricular systolic function is normal. Pacemaker lead is present in the right ventricle. Atria The left atrium size is normal. Pacemaker lead is present in the right atrium. Aortic Valve The aortic valve is normal in structure. No aortic regurgitation is present. There is no aortic valvular stenosis. Mitral Valve The mitral valve is normal in structure. There is no mitral valve regurgitation noted. No evidence of mitral valve stenosis. Tricuspid Valve The tricuspid valve is normal in structure. Mild tricuspid regurgitation. No pulmonary hypertension. Pulmonic Valve The pulmonary valve is normal in structure. There is no pulmonic valvular regurgitation[place] [address] 2 D/M-MODE ECHOCARDIOGRAM Name: WARNER GOODE Room: [facility]#: [id number] Admission: 07/29/18 Attend Phys: Carmen Michel, Discharge: Date of : 41 Date of Service: 07/29/18 1100 Report #: [id number] The aortic root is normal in size. IVC is normal in size and collapses >50% with inspiration. Pericardium There is no pericardial effusion. <Conclusion> The left ventricle is normal size. Mild concentric left ventricular hypertrophy. Left ventricular systolic function is mildly decreased. LVEF is 45-50%. Grade I - abnormal relaxation pattern. Basal inferior wall akinesis. Pacemaker lead is present in the right ventricle. Mild tricuspid regurgitation. No pulmonary hypertension. IVC is normal in size and collapses >50% with inspiration. <ELECTRONICALLY SIGNED> By: Erick Carias MD, FACC 07/29/18 1100 1100 99 Erikc Carias MD, FACC /INF
== END ==
LOC: M.CRD 08:44
DX: I07.1 Rheumatic tricuspid insufficiency (principal); I42.0 Dilated cardiomyopathy; I25.10 Atherosclerotic heart disease of native coronary artery without angina pectoris

== ENCOUNTER 2019-03-21 11:56 | Emergency (ER) | payer MEDICARE ==
[~2019-03-21] VITALS: Ht 177.8 cm; Wt 95.3 kg
[2019-03-21 12:32] LABS: ABSOLUTE BASOPHILS 0.1 thou/uL (0.0-0.2); ABSOLUTE EOSINOPHILS 0.1 thou/uL (0.0-0.7); ABSOLUTE LYMPHOCYTES 1.2 thou/uL (0.8-5.3); ABSOLUTE MONOCYTES 0.6 thou/uL (0.0-1.2); ABSOLUTE NEUTROPHILS 10.9 thou/uL (1.6-8.1); BASOPHILS 0.6 %; EOSINOPHILS 0.9 %; HEMOGLOBIN 14.8 gm/dL (14.0-18.0); LYMPHOCYTES 9.2 %; MCH 30.8 pg (26.0-34.0); MCHC 32.9 g/dL (28.0-37.0); MCV 93.6 fL (80.0-100.0); MONOCYTES 4.5 %; MPV 10.6 fl. (7.2-11.1); NUCLEATED RBCS 0 /100WBC; PLATELET COUNT* 135 thou/uL (150-400); POLYS 84.8 %; RBC 4.81 mil/uL (4.50-6.00); RDW-CV 14.7 % (10.5-14.5); WBC 12.8 thou/uL (4.0-11.0)
[2019-03-21 12:38] LABS: URINE BILIRUBIN NEGATIVE (Negative); URINE BLOOD 2+ (Negative); URINE CLARITY CLEAR; URINE COLOR YELLOW; URINE GLUCOSE-RANDOM 3+ (Negative); URINE KETONES NEGATIVE (Negative); URINE LEUKOCYTES-REFLEX NEGATIVE (Negative); URINE NITRITE-REFLEX NEGATIVE (Negative); URINE PROTEIN NEGATIVE (Negative); URINE UROBILINOGEN 0.2 E.U./dl (0.2-1.0)
[2019-03-21 12:40] LABS: CALCIUM 8.1 mg/dL (8.5-10.1); CREATININE 1.9 mg/dL (0.6-1.3); POTASSIUM 4.2 mmol/L (3.5-5.1)
[2019-03-21 12:44] LABS: ALBUMIN 3.8 g/dL (3.4-5.0); TOTAL BILIRUBIN 0.4 mg/dL (<0.1-1.0); TOTAL PROTEIN 6.7 g/dL (6.4-8.2)
[2019-03-21] MEDS ORDERED: PERCOCET 5-3251 EACH PO (13:13)
[2019-03-21] MEDS ORDERED: FLOMAX0.4 MG PO ×2 (13:13→13:18)
[2019-03-21] MEDS ORDERED: ZOFRAN ODT4 MG PO (13:13)
[2019-03-21 13:21] VITALS: BP 145/62
[2019-03-21 13:39] LABS: SQUAMOUS NONE SEEN /LPF (0-3); URINE RBC 3-10 Few /HPF (0-2); URINE WBC-REFLEX 0-5 Rare /HPF (0-5)
[2019-03-21 13:40] LABS: BACTERIA-REFLEX None Seen /HPF (None Seen); CASTS None Seen /LPF (None Seen); CRYSTALS None Seen /LPF (None Seen)
== END 2019-03-21 13:22 | disposition home or self-care (01) ==
LOC: M.ERS 11:56
PROVIDERS: Emergency Medicine
DX: N20.1 Calculus of ureter (principal); R11.2 Nausea with vomiting, unspecified; I10 Essential (primary) hypertension; E78.00 Pure hypercholesterolemia, unspecified; K21.9 Gastro-esophageal reflux disease without esophagitis; E11.9 Type 2 diabetes mellitus without complications; Z90.89 Acquired absence of other organs; Z98.52 Vasectomy status; Z87.442 Personal history of urinary calculi; Z79.82 Long term (current) use of aspirin; Z88.1 Allergy status to other antibiotic agents; Z79.84 Long term (current) use of oral hypoglycemic drugs

== ENCOUNTER → 2019-07-07 | Outpatient (CLI) | payer MEDICARE ==
[~2019-07-07] MED LIST changes: +FLOMAX0.4 MG PO; +PERCOCET 5-3251 EACH PO; +ZOFRAN ODT4 MG PO
[2019-07-07 13:05] LABS: ABSOLUTE BASOPHILS 0.1 thou/uL (0.0-0.2); ABSOLUTE EOSINOPHILS 0.1 thou/uL (0.0-0.7); ABSOLUTE LYMPHOCYTES 1.6 thou/uL (0.8-5.3); ABSOLUTE MONOCYTES 1.2 thou/uL (0.0-1.2); ABSOLUTE NEUTROPHILS 7.6 thou/uL (1.6-8.1); BASOPHILS 0.7 %; EOSINOPHILS 1.4 %; HEMATOCRIT 40.9 % (42.0-52.0); HEMOGLOBIN 13.4 gm/dL (14.0-18.0); LYMPHOCYTES 15.4 %; MCHC 32.9 g/dL (28.0-37.0); MCV 94.2 fL (80.0-100.0); MONOCYTES 10.9 %; MPV 9.7 fl. (7.2-11.1); NUCLEATED RBCS 0 /100WBC; PLATELET COUNT* 165 thou/uL (150-400); POLYS 71.6 %; RBC 4.34 mil/uL (4.50-6.00); RDW-CV 15.5 % (10.5-14.5); WBC 10.6 thou/uL (4.0-11.0)
[2019-07-07 13:21] LABS: ALBUMIN 3.9 g/dL (3.4-5.0); CALCIUM 8.1 mg/dL (8.5-10.1); CREATININE 1.5 mg/dL (0.6-1.3); MAGNESIUM 1.8 mg/dL (1.8-2.4); POTASSIUM 4.3 mmol/L (3.5-5.1); TOTAL BILIRUBIN 0.6 mg/dL (<0.1-1.0); TOTAL PROTEIN 7.1 g/dL (6.4-8.2)
== END ==
LOC: M.LAB 12:48
PROVIDERS: Nurse Practitioner
DX: R91.8 Other nonspecific abnormal finding of lung field (principal); M47.814 Spondylosis without myelopathy or radiculopathy, thoracic region; I42.0 Dilated cardiomyopathy; R06.02 Shortness of breath; I48.0 Paroxysmal atrial fibrillation; Z88.8 Allergy status to other drugs, medicaments and biological substances; Z95.0 Presence of cardiac pacemaker

== ENCOUNTER → 2019-07-10 | Outpatient (CLI) | payer MEDICARE ==
--- NOTE | 2019-07-10 10:28 | 2DMMODE ---
[place] [address] 2 D/M-MODE ECHOCARDIOGRAM Name: RUPAWARNER Abdirizak Room: [facility]#: [id number] Admission: 07/10/19 Attend Phys: Carmen Michel, Discharge: Date of : 41 Date of Service: 07/10/19 1027 Report #: [id number] THIS REPORT FOR: cc: Reese Sims Bradley L. DO Blick,Wing Díaz MD [facility] ~ APPROVED REPORT Study performed: 07/10/2019 09:02:34 EXAM: Comprehensive 2D, Doppler, and color-flow Echocardiogram Patient Location: Out-Patient BSA: 2.18 HR: 110 bpm BP: 110/80 mmHg Other Information Study Quality: Good Indications Cardiomyopathy 2D Dimensions IVSd: 14.84 (7-11mm) LVOT Diam: 20.25 (18-24mm) LVDd: 54.86 mm PWd: 14.26 (7-11mm) Ascending Ao: 36.25 (22-36mm) LVDs: 45.63 (25-40mm) Aortic Root: 33.55 mm Volumes Left Atrial Volume (Systole) LA ESV Index: 34.80 mL/m2 Aortic Valve AoV Peak Jostin.: 0.90 m/s AO Peak Gr.: 3.27 mmHg LVOT Max P.05 mmHg AO Mean Gr.: 2.29 mmHg LVOT Mean P.56 mmHg LVOT Max V: 0.87 m/s AO V2 VTI: 14.01 cm LVOT Mean V: 0.58 m/s GABRIELE (VTI): 3.25 cm2 LVOT V1 VTI: 14.15 cm Mitral Valve MV Decel. Time: 156.23 [place] [address] 2 D/M-MODE ECHOCARDIOGRAM Name: WARNER GOODE Room: [facility]#: [id number] Admission: 07/10/19 Attend Phys: Carmen Michel, Discharge: Date of : 41 Date of Service: 07/10/19 1027 Report #: [id number] PHT: 45.31 ms MVA (PHT): 4.86 cm2 TDI Medial E' Jostin.: 0.09 m/s Lateral E' Jostin.: 0.06 m/s Pulmonary Valve PV Peak Jostin.: 0.75 m/s PV Peak Gr.: 2.26 mmHg Tricuspid Valve RAP Estimate: 20.00 mmHg TR Peak Gr.: 24.38 mmHg RVSP: 44.38 mmHg PA Pressure: 44.38 mmHg Left Ventricle The left ventricle is normal size. severe hypokinesis noted of the inferior wall and apex Mild concentric left ventricular hypertrophy. Left ventricular systolic function is moderately decreased. LVEF is 30-35%. Right Ventricle The right ventricle is normal size. The right ventricular systolic function is normal. Device lead is present in the right ventricle. Atria Left atrium is mildly dilated. The right atrium size is normal. Aortic Valve The aortic valve is normal in structure. Trace aortic regurgitation. There is no aortic valvular stenosis. Mitral Valve Mitral valve leaflets are calcified. Mild mitral regurgitation. No evidence of mitral valve stenosis. Tricuspid Valve The tricuspid valve is normal in structure. Trace tricuspid regurgitation. Pulmonic Valve The pulmonary valve is normal in structure. Trace pulmonic regurgitation[place] [address] 2 D/M-MODE ECHOCARDIOGRAM Name: WARNER GOODE Room: [facility]#: [id number] Admission: 07/10/19 Attend Phys: Carmen Michel, Discharge: Date of : 41 Date of Service: 07/10/19 102 Report #: [id number] The aortic root is normal in size. IVC is dilated. Pericardium There is no pericardial effusion. <Conclusion> Mild concentric left ventricular hypertrophy. LVEF is 30-35%. Left atrium is mildly dilated. Mild mitral regurgitation. <ELECTRONICALLY SIGNED> By: Wing Hernandez MD, [facility] 07/10/191026 26 102 Wing Hernandez MD, FACC /INF
== END ==
LOC: M.CRD 09:08
DX: I05.1 Rheumatic mitral insufficiency (principal); I42.0 Dilated cardiomyopathy

== ENCOUNTER → 2019-09-03 | Outpatient (CLI) | payer MEDICARE ==
[2019-09-03] VITALS (10 sets, daily range): BP systolic 110–160; BP diastolic 69–90
[~2019-09-03] MED LIST changes: +CARVEDILOL25 MG PO; +COENZYME Q-10200 MG PO; +FUROSEMIDE 20 M20 MG PO; +LOTENSIN10 MG PO; +OMEPRAZOLE 20 M20 M1 PO; +OXYBUTYNIN 5 MG5 M2 PO; +PACERONE 200 M200 M1 PO; +XARELTO15 MG PO
--- NOTE | 2019-09-03 12:17 | TEE ---
[place] [address] TRANSESOPHAGEAL ECHOCARDIOGRAM Name: WARNER GOODE Room: [facility]#: [id number] Admission: 09/03/19 Attend Phys: Erick Carias, Discharge: Date of : 41 Date of Service: 09/03/19 1215 Report #: [id number] THIS REPORT FOR: cc: Reese Sims Bradley L. DO Liston, Michael J. MD [facility] ~ APPROVED REPORT Study performed: 09/03/2019 11:18:50 EXAM: Transesophageal Echocardiogram Patient Location: Out-Patient Status: routine BSA: 2.11 HR: 92 bpm BP: 144/88 mmHg Rhythm: NSR Other Information Study Quality: Good Indications Atrial Fibrillation Echo Enhancing Agent Indication: Rule out Shunt Agent(s) / Amount(s) Used: Agitated Saline 10 cc Procedure After obtaining informed consent, patient underwent transesophageal echo in the [employer]. Type of Sedation : Conscious Sedation Sedation was administered by Marla Hurley RN. Sedation start time: 1125 Case end Time: 1145 Sedation was achieved intravenously with: Versed (3) Fentanyl (75) Transesophageal probe was inserted and advanced into esophagus without difficulty by Erick Carias MD, FACC. Echo enhancement indication: R/O Septal defect. Echo enhancement agent administered: Agitated Saline The GONSALO was performed without complications. Synchronized Cardioversion acheived with 300 Joules after 1 attempt(s). Rhythm following Synchronized Cardioversion: Normal Sinus Rhythm [address] [address] TRANSESOPHAGEAL ECHOCARDIOGRAM Name: WARNER GOODE Room: [facility]#: [id number] Admission: 09/03/19 Attend Phys: Erick Carias, Discharge: Date of : 41 Date of Service: 09/03/19 1215 Report #: [id number] Throughout the procedure, the blood pressure, pulse oximetry, cardiac rhythm, and rate were monitored. The patient tolerated the procedure without adverse effects. Recovery from conscious sedation was uneventful and vital signs were stable. Left Ventricle The left ventricle is normal size. There is global hypokinesis of the left ventricle. There is normal left ventricular wall thickness. Left ventricular systolic function is mildly decreased. LVEF is 40-45%. Right Ventricle The right ventricle is normal size. The right ventricular systolic function is normal. Atria No thrombus is visualized in the left atrium or appendage. The interatrial septum is intact with no evidence for an atrial septal defect. The right atrium size is normal. Aortic Valve The aortic valve is normal in structure. Trace aortic regurgitation. There is no aortic valvular stenosis. Mitral Valve The mitral valve is normal in structure. Mild mitral regurgitation. No evidence of mitral valve stenosis. Tricuspid Valve The tricuspid valve is normal in structure. Trace tricuspid regurgitation. Pulmonic Valve The pulmonary valve is normal in structure. There is no pulmonic valvular regurgitation. Great Vessels The aortic root is normal in size. Pericardium There is no pericardial effusion. <Conclusion> The left ventricle is normal size. There is normal left [place] [address] TRANSESOPHAGEAL ECHOCARDIOGRAM Name: GOODEWARNER K Room: [facility]#: [id number] Admission: 09/03/19 Attend Phys: Erick Carias, Discharge: Date of : 41 Date of Service: 09/03/191214 Report #: [id number] Left ventricular systolic function is mildly decreased. LVEF is 40-45%. There is global hypokinesis of the left ventricle. The interatrial septum is intact with no evidence for an atrial septal defect. No thrombus is visualized in the left atrium or appendage. Trace aortic regurgitation. Mild mitral regurgitation. <ELECTRONICALLY SIGNED> By: Erick Carias MD, FAC 09/03/191214 14 14 Erick Carias MD, FACC /INF
[2019-09-03 13:11] LABS: CALCIUM 8.1 mg/dL (8.5-10.1); POTASSIUM 4.8 mmol/L (3.5-5.1)
== END | disposition home or self-care (01) ==
LOC: M.CL 10:09
PROVIDERS: Internal Medicine Cardiovascular Disease
DX: I48.91 Unspecified atrial fibrillation (principal); I08.0 Rheumatic disorders of both mitral and aortic valves; Z98.890 Other specified postprocedural states; Z79.899 Other long term (current) drug therapy; Z79.01 Long term (current) use of anticoagulants; Z88.8 Allergy status to other drugs, medicaments and biological substances

== ENCOUNTER → 2020-08-12 | Outpatient (CLI) | payer OTHER | LOC: M.CT 12:00 → M.LAB 12:00 → M.CT 12:01 | PROVIDERS: ATTEND Nurse Practitioner Adult Health | DX: N20.0 Calculus of kidney (principal); K80.20 Calculus of gallbladder without cholecystitis without obstruction ==